=== PATIENT | female | born 1965 | race Caucasian/White ===

== ENCOUNTER 2018-08-09 09:29 | Emergency (ER) | payer MEDICAID ==
[~2018-08-09] VITALS: Ht 165.1 cm; Wt 90.7 kg
[2018-08-09 09:38] VITALS: BP 108/63
--- NOTE | 2018-08-09 09:55 | NUR ---
SEEN AND EXAMINED BY DR. ARAGON.
[2018-08-09] MEDS ORDERED: predniSONE 20 MG TABLET ONE (09:56)
[2018-08-09] MEDS ORDERED: IPRATROPIUM NEB FS 0.5 MG/2.5 ML AMPUL.NEB ONE (09:59)
[2018-08-09] MEDS ORDERED: ALBUTEROL FS 2.5 MG/3 ML VIAL.NEB ONE (09:59)
[2018-08-09] MEDS ORDERED: predniSONE 20 MG TABLET PO ONE (10:00)
[2018-08-09] MEDS ORDERED: ALBUTEROL FS 2.5 MG/3 ML VIAL.NEB NEB ONE (10:00)
[2018-08-09] MEDS ORDERED: IPRATROPIUM NEB FS 0.5 MG/2.5 ML AMPUL.NEB NEB ONE (10:00)
--- NOTE | 2018-08-09 10:00 | NUR ---
RT AT BEDSIDE FOR BREATHING TREATMENT.
--- NOTE | 2018-08-09 10:06 | NUR ---
COURT CLERK AT BEDSIDE FOR XRAY.
--- NOTE | 2018-08-09 10:51 | NUR ---
Patient discharged to home in stable condition. Written and verbal after care instructions given. Patient verbalizes understanding of instruction.
== END 2018-08-09 10:51 | disposition home or self-care (01) ==
LOC: ER 09:32
DX: J45.901 Unspecified asthma with (acute) exacerbation (principal); F17.200 Nicotine dependence, unspecified, uncomplicated; Z98.890 Other specified postprocedural states
CPT/HCPCS: 71045; 87804 ×2; 94640; 99284; J7512; 87400

== ENCOUNTER 2019-11-13 10:48 | Emergency (ER) | payer MEDICAID ==
[~2019-11-13] VITALS: Ht 170.2 cm; Wt 83.9 kg
--- NOTE | 2019-11-13 10:55 | NUR ---
AT BEDSIDE FOR EVAL.
[2019-11-13] MEDS ORDERED: ALBUTEROL FS 2.5 MG/3 ML VIAL.NEB NEB ONE (11:00)
[2019-11-13] MEDS ORDERED: IPRATROPIUM NEB FS 0.5 MG/2.5 ML AMPUL.NEB NEB ONE (11:00)
--- NOTE | 2019-11-13 11:10 | NUR ---
CALLED RT FOR BREATHING TREATMENT.
--- NOTE | 2019-11-13 11:14 | NUR ---
[employer] AT BEDSIDE FOR XRAY.
[2019-11-13] MEDS ORDERED: IPRATROPIUM NEB FS 0.5 MG/2.5 ML AMPUL.NEB ONE (11:18)
[2019-11-13] MEDS ORDERED: ALBUTEROL FS 2.5 MG/3 ML VIAL.NEB ONE (11:18)
[2019-11-13] MEDS ORDERED: DEXAMETHASONE SOD PHOSPHATE 10 MG/ML VIAL ONE (11:27)
[2019-11-13] MEDS ORDERED: DEXAMETHASONE SOD PHOSPHATE 10 MG/ML VIAL IM ONE (11:30)
[2019-11-13 12:21] VITALS: BP 124/80
--- NOTE | 2019-11-13 12:21 | NUR ---
Patient discharged to home in stable condition. Written and verbal after care instructions given. Patient verbalizes understanding of instruction.
== END 2019-11-13 12:22 | disposition home or self-care (01) ==
LOC: ER 10:48
DX: J20.9 Acute bronchitis, unspecified (principal); Z98.890 Other specified postprocedural states
CPT/HCPCS: 71045; 94640; 96372; 99283; J1100

== ENCOUNTER 2023-09-12 17:27 | Emergency (ER) | payer SELFPAY ==
[~2023-09-12] VITALS: Ht 165.1 cm; Wt 87.1 kg
[2023-09-12] MEDS ORDERED: MORPHINE SULFATE INJ 4 MG/ML DISP.SYRIN ONE (18:54)
[2023-09-12] MEDS ORDERED: ONDANSETRON HCL/PF 4 MG/2 ML VIAL ONE ×2 (18:54→21:38)
[2023-09-12 18:56] LABS: BASOPHILS % (AUTO) 0.4 % (0.0-2.0); EOSINOPHILS # (AUTO) 0.1 K/uL (0.0-0.7); EOSINOPHILS % (AUTO) 1.1 % (0.0-6.0); HEMATOCRIT 42 % (33-45); HEMOGLOBIN 13.7 g/dL (11.5-14.8); LYMPHOCYTES # (AUTO) 1.5 K/uL (0.8-4.8); LYMPHOCYTES % (AUTO) 18.6 % (20.0-44.0); MEAN CORPUSCULAR HEMOGLOBIN 27 PG (26.0-33.0); MEAN CORPUSCULAR HGB CONC 33 g/dl (31.0-36.0); MEAN CORPUSCULAR VOLUME 83 fL (82-100); MONOCYTES # (AUTO) 0.6 K/uL (0.1-1.30); MONOCYTES % (AUTO) 7.9 % (2.0-12.0); NEUTROPHILS # (AUTO) 5.9 K/uL (1.8-8.9); PLATELET COUNT (AUTO) 156 K/uL (150-450); RED BLOOD CELL COUNT(AUTO) 5.08 MIL/uL (4.0-5.2); RED CELL DISTRIBUTION WIDTH 13.7 % (11.5-15.0); WHITE BLOOD COUNT (AUTO) 8.2 K/uL (4.3-11.0)
[2023-09-12 18:57] LABS: APPEARANCE,URINE Clear (CLEAR); BILIRUBIN,URINE Negative (NEGATIVE); BLOOD, URINE Moderate Ery/uL (NEGATIVE); COLOR,URINE YELLOW (YELLOW); KETONES,URINE Trace mg/dL (NEGATIVE); LEUKOCYTE ESTERASE ,URINE Negative (NEGATIVE); NITRITE, URINE Negative (NEGATIVE); PH,URINE 5.5 (5.0-8.0); PROTEIN,URINE Negative (NEGATIVE); UGLUCOSE Negative (NEGATIVE); UROBILINOGEN,URINE 0.2 EU/dL (0.2)
[2023-09-12] MEDS: IV NS 0.9% 1,000 ML BAG IV ONE (19:02)
[2023-09-12 19:03] LABS: CALCIUM, SERUM 8.6 mg/dL (8.5-10.1); CREATININE 1.2 mg/dL (0.6-1.3); POTASSIUM 3.7 mmol/L (3.5-5.1)
[2023-09-12] MEDS: ONDANSETRON HCL/PF 4 MG/2 ML VIAL IVP ONE (19:03)
[2023-09-12] MEDS: MORPHINE SULFATE INJ 2 MG/ML DISP.SYRIN IV ONE (19:03)
[2023-09-12 19:08] LABS: ADD URINE CULTURE NO; BACTERIA,URINE Few /HPF (None Seen)
[2023-09-12 19:09] LABS: CALCIUM OXALATE CRYSTALS,UR Few /HPF (None Seen)
[2023-09-12 19:09] LABS: ALBUMIN 3.3 g/dL (3.4-5.0); BILIRUBIN,DIRECT 0.1 mg/dL (0.0-0.2); BILIRUBIN,TOTAL 0.4 mg/dL (0.2-1.0); TOTAL PROTEIN, SERUM 7.1 g/dL (6.4-8.2)
[2023-09-12] MEDS ORDERED: TAMSULOSIN 0.4 MG CAP.SR.24H ONE (19:50)
[2023-09-12] MEDS: TAMSULOSIN 0.4 MG CAP.SR.24H PO ONE ×2 (19:53→20:58)
[2023-09-12] MEDS ORDERED: HYDROMORPHONE 1 MG/1 ML DISP.SYRIN ONE (20:48)
[2023-09-12] MEDS: HYDROMORPHONE 1 MG/1 ML DISP.SYRIN IV ONE (20:51)
[2023-09-12] MEDS ORDERED: KETOROLAC TROMETHAMINE INJ 30 MG/ML VIAL ONE (20:59)
[2023-09-12] MEDS: KETOROLAC TROMETHAMINE INJ 30 MG/ML VIAL IV ONE (21:01)
[2023-09-12] MEDS ORDERED: HYDR-3976 GT (21:04)
[2023-09-12] MEDS ORDERED: IBUP-1953 PO (21:04)
[2023-09-12] MEDS ORDERED: TAMS-12 PO (21:04)
[2023-09-12] MEDS: ONDANSETRON HCL/PF 4 MG/2 ML VIAL IV ONE (21:40)
[2023-09-12 22:00] VITALS: BP 125/78; TEMP 98.1; O2SAT 98
== END 2023-09-12 22:01 | disposition home or self-care (01) ==
LOC: ER 17:33
DX: N23 Unspecified renal colic (principal); N20.1 Calculus of ureter; R11.0 Nausea; F17.200 Nicotine dependence, unspecified, uncomplicated
CPT/HCPCS: 99285; 74176; 96374; 96375; 76700; 71045; 96361; 93005; 96376; 85025; 80048; 83690; 80076; 81001; 36415; J2270; J1885; J2405 ×2; J7030; J1170